=== PATIENT | female | born 1970 | race African-American/Black ===

== ENCOUNTER 2023-05-15 07:21 | Emergency (ER) | payer BC, SELFPAY ==
[2023-05-15 07:40] VITALS: BP 128/75; PULSE 92; RESP 16; TEMP 36.6; O2SAT 100
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
[2023-05-15 08:23] VITALS: BP 122/91; PULSE 82; RESP 16; O2SAT 100
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
[2023-05-15 12:10] VITALS: BP 134/90; PULSE 87; RESP 16; O2SAT 100
== END 2023-05-15 12:10 | disposition home or self-care (01) ==
PROVIDERS: Emergency Provider Emergency Medicine
DX: Z76.0 Encounter for issue of repeat prescription (principal); Z63.0 Problems in relationship with spouse or partner; Z79.899 Other long term (current) drug therapy
CPT/HCPCS: 99283

== ENCOUNTER 2024-04-28 07:45 | Emergency (ER) | payer OTHER, SELFPAY ==
--- NOTE | ~2024-04-28 | CT_ITS ---
CT abdomen pelvis w con Ordering provider: Amado Salvador MD History: 53 years Female with . lower abdominal pain . Comparison: None. Technique: CT abdomen and pelvis with IV and without oral contrast. Automated exposure control and it erative reconstruction technique were employed. The dose-length product was 262.36 mGy-cm. 100 MLO Omnipaque 350 was given IV. Findings: VISUALIZED LOWER CHEST: Dependent atelectatic changes. UPPER ABDOMINAL ORGANS: Liver: Normal. Gallbladder: Possible tiny stone in the gallbladder. Spleen: Normal. Stomach/duodenum: Normal. Pancreas: Normal. Adrenals: Normal. Kidneys: 1.9 cm cyst is seen in the left kidney midpole. PELVIC ORGANS: The bladder is slightly underfilled with thickened wall. Evaluation for cystitis advis ed. Uterus: Normal. BOWEL AND MESENTERY: Colon: No evidence of diverticulitis. Normal appendix. Small Bowel: Normal. No obstruction. Peritoneum/mesentery: No free air or free fluid. No mesenteric lymphadenopathy. RETROPERITONEUM: Mild atheromatous disease of the abdominal aorta. No retroperitoneal lymphadenopat hy. MUSCULOSKELETAL: Superficial soft tissues: The superficial soft tissues are normal. Bones: Age appropriate degenerative changes of the spine. IMPRESSION: 1. No evidence of appendicitis, diverticulitis or intestinal obstruction. 2. Highly suggestive Cholelithiasis. Ultrasound confirmation advised. 3. Small cyst in the left kidney. Reviewed, dictated and finalized at location A.
--- NOTE | ~2024-04-28 | US_ITS ---
COMPLETE ABDOMINAL ULTRASOUND Ordering provider: Amado Salvador MD History: . pain . Comparison: None. FINDINGS: LIVER: Normal size and echotexture. No focal hepatic lesions or perihepatic fluid collections are brendan ntified. Portal vein flow is hepatofugal. GALLBLADDER: Echogenic area with no shadowing is seen in the fundus which may be a polyp. Stone is le ss likely. This area is Measuring 0.3 x 0.3 x 0.4 cm. . Follow-up advised. No evidence for sludge, ga llbladder wall thickening or pericholecystic fluid collections. A negative sonographic Dodd's sign was noted. BILIARY DUCTS: No evidence for intra or extrahepatic biliary dilation. Common bile duct measures 4 mm in diameter which is within normal limits. PANCREAS: Normal echotexture and size. UPPER ABDOMINAL AORTA: Normal in caliber. Measures 1.8 cm. IVC: Patent. FREE FLUID: None. IMPRESSION: 1. Highly suggestive polyp in the fundus of the stomach. Follow-up advised. Otherwise, Unremarkable c omplete ultrasound of the abdomen. Reviewed, dictated and finalized at location A. IMPRESSION: 1. Highly suggestive polyp in the fundus of the stomach. Follow-up advised. Oth erwise, Unremarkable complete ultrasound of the abdomen.
[2024-04-28 07:48] VITALS: BP 121/92; PULSE 102; RESP 22; TEMP 36.4; O2SAT 96
[2024-04-28] MEDS: MORPHINE SULFATE (*CRX) 4 MG/ML INJ IV PUSH ×2 (08:21→09:45)
[2024-04-28] MEDS: ONDANSETRON INJ 4 MG/2 ML VIAL IV PUSH (08:21)
[2024-04-28] MEDS: SODIUM CHLORIDE 0.9% IV 1,000 ML 999 ML IV CONT (08:21)
[2024-04-28 08:26] LABS: Basophils Percent Auto 0.3 % (0.2-1.2); Eosinophils Absolute Auto 0.1 K/mm3 (0-0.3); Eosinophils Percent Auto 2.4 % (0-4.4); Hematocrit 38.4 % (37.0-47.0); Hemoglobin 12.9 g/dL (12.0-15.0); Immature Granulocyte Absolute 0.01 K/mm3 (0.00-0.031); Immature Granulocyte Percent A 0.2 % (0-0.5); Lymphocytes Absolute Auto 3.36 K/mm3 (0.9-3.2); Lymphocytes Percent Auto 56.6 % (18.3-44.2); Mean Corpuscular HGB Conc 33.6 g/dl (32-36); Mean Corpuscular Hemoglobin 31.4 pg (26-34); Mean Corpuscular Volume 93.4 fl (80-100); Mean Platelet Volume 9.7 fl (7.4-10.4); Monocytes Absolute Auto 0.4 K/mm3 (0.1-0.6); Monocytes Percent Auto 7.4 % (2.6-8.5); Neutrophils Percent Auto 33.1 % (45.5-73.1); Platelet Count Result 225 k/mm3 (150-375); Red Blood Count 4.11 M/mm3 (4.2-5.4); Red Cell Distribution Width 11.9 % (11.5-14.5); White Blood Count 5.9 K/mm3 (4.5-10.0)
[2024-04-28 08:36] LABS: Alanine Aminotransferase 19 U/L (6-35); Albumin Level 4.5 g/dL (3.5-5.1); Alkaline Phosphatase 104 U/L (38-126); Anion Gap 11 mmol/L (4-12); Aspartate Amino Transferase 26 U/L (14-36); Bilirubin,Total 0.5 mg/dL (0.2-1.3); Blood Urea Nitrogen 12 mg/dL (7-17); Calcium 9.3 mg/dL (8.4-10.2); Carbon Dioxide 25 mmol/L (22-30); Chloride 103 mmol/L (98-107); Estimated CRCL calculation 75 ml/min; Estimated Glomerular Filt Rate > 60; Glucose 138 mg/dL (65-110); Lipase 128 U/L (23-300); Potassium 3.7 mmol/L (3.4-5.0); Sodium 139 mmol/L (137-145)
[2024-04-28 08:40] LABS: Partial Thromboplastin Time 27.5 Seconds (22.3-36.8)
[2024-04-28 09:18] LABS: Appearance Urine Clear (Clear); Bacteria Urine None Seen /hpf; Bilirubin Urine Negative (Negative); Blood Urine Negative (Negative); Color Urine Yellow (Yellow); Glucose Urine UA Negative (Negative); Ketones Urine Negative (Negative); Leukocyte Esterase Ur 1+ LEU/UL (Negative); Nitrate Urine Negative (Negative); Non Pathogenic Casts 0-2; Protein Urine Negative (Negative); RBC Urine 0-2 /hpf (0-2); Specific Grav Ur 1.037 (1.001-1.035); Squamous Epithelial Cell Urine None Seen /hpf (Few); Urobilinogen Urine 0.2 mg/dL (<2.0); pH Urine 5.5 (5.0-9.0)
[2024-04-28 09:43] LABS: Add Urine Microscopic? YES
--- NOTE | 2024-04-28 09:52 | PC.NURSE ---
Pt refusing US until pain meds given. Pt rocking back & forth. Dr. Salvador informed. Pt medicated with Morphine 4mg. Pt refusing to lay back for US. Informed pt pain med given, in order to complete diagnostics for diagnosis she will need to lay back. Pt reluctantly complied.
[2024-04-28 10:15] VITALS: BP 128/74; PULSE 78; RESP 18; O2SAT 97
--- NOTE | 2024-04-28 11:03 | ED.ABDPAIN ---
HPI - Abdominal Pain General Chief Complaint: Abdominal Pain Stated Complaint: abdominal pain Time Seen by Provider: 04/28/24 07:55 History of Present Illness HPI narrative: patient is a 53-year-old female who presents ER with abdominal pain. Diffuse. Cramping. No fevers or chills or sweats. No vomiting or diarrhea. Patient without urinary frequency. Pain is better with rolling into a ball and worse with lying back. Related Data Home Medications Medication Instructions Recorded Confirmed ergocalciferol (vitamin D2) 1,250 05/15/23 05/15/23 mcg (50,000 unit) capsule hydrocortisone 2.5 % topical cream applic topical 05/15/23 lisinopril 10 mg tablet mg 05/15/23 potassium chloride 20 mEq meq PO 05/15/23 tablet,extended release(part/cryst) sertraline 50 mg tablet mg 05/15/23 Allergies Allergy/AdvReac Type Severity Reaction Status Date / Time No Known Allergies Allergy Verified 04/28/24 11:57 Review of Systems Review of Systems: All systems reviewed & are unremarkable except as noted in HPI and below Constitutional: Constitutional: Reports no additional constitutional complaints ENT: Reports system reviewed and no additional complaints, except as documented Cardiovascular: Cardiovascular: Reports no additional cardiovascular complaints Respiratory: Respiratory: Reports no additional respiratory complaints Gastrointestinal: Gastrointestinal: Reports abdominal pain, Denies diarrhea, Denies nausea and Denies vomiting Genitourinary: Genitourinary: Denies nocturia, Denies dysuria and Reports flank pain PMFSH Past Medical History Medical History (Updated 04/28/24 @ 12:04 by Amado Salvador MD) Hypertension Surgical History Surgical History (Updated 04/28/24 @ 11:06 by Amado Salvador MD) No pertinent past surgical history Exam Narrative: GENERAL: uncomfortable-appearing, well-nourished, and in no acute distress. HEAD: Normocephalic, atraumatic. ENT: Mucous membranes moist. CHEST: Clear to auscultation. No respiratory distress. HEART: Regular rate and rhythm. Normal peripheral pulses. ABDOMEN: Soft, mild diffuse discomfort without localizing tenderness, nondistended. EXTREMITIES: Normal range of motion. No edema. SKIN: Warm, dry, no rash. NEURO: Alert and oriented x3. PSYCH: Normal mood and affect. Course Course Emergency Course: pain improving. Informed results. Discharge home with supportive care. Vital Signs Vital signs: Vital Signs Temperature 97.6 F 04/28/24 07:48 Pulse Rate 102 H 04/28/24 07:48 Respiratory Rate 22 H 04/28/24 07:48 Blood Pressure 121/92 H 04/28/24 07:48 Pulse Oximetry 96 04/28/24 07:48 Oxygen Delivery Room Air 04/28/24 07:48 Temperature 97.6 F 04/28/24 07:48 Pulse Rate 102 H 04/28/24 07:48 Respiratory Rate 22 H 04/28/24 07:48 Blood Pressure 121/92 H 04/28/24 07:48 Pulse Oximetry 96 04/28/24 07:48 Oxygen Delivery Room Air 04/28/24 07:48 MDM - Abdominal Pain Lab Data 04/28/24 08:21 04/28/24 08:21 Labs: Lab Results 04/28/24 04/28/24 Range/Units 08:21 09:05 WBC 5.9 (4.5-10.0) K/mm3 RBC 4.11 L (4.2-5.4) M/mm3 Hgb 12.9 (12.0-15.0) g/dL Hct 38.4 (37.0-47.0) % MCV 93.4 (80-100) fl MCH 31.4 (26-34) pg MCHC 33.6 (32-36) g/dl RDW 11.9 (11.5-14.5) % Plt Count 225 (150-375) k/mm3 MPV 9.7 (7.4-10.4) fl Immature Gran % (Auto) 0.2 (0-0.5) % Neut % (Auto) 33.1 L (45.5-73.1) % Lymph % (Auto) 56.6 H (18.3-44.2) % [place] % (Auto) 7.4 (2.6-8.5) % Eos % (Auto) 2.4 (0-4.4) % Baso % (Auto) 0.3 (0.2-1.2) % Lymph # (Auto) 3.36 H (0.9-3.2) K/mm3 [place] # (Auto) 0.4 (0.1-0.6) K/mm3 Eos # (Auto) 0.1 (0-0.3) K/mm3 Baso # (Auto) 0.0 (0.0-0.1) K/mm3 Abs Immat Gran (auto) 0.01 (0.00-0.031) K/mm3 Absolute Neuts (auto) 2.0 (1.3-6.7) K/mm3 Absolute Nucleated RBC 0.000 (0.0-0.012) K/mm3 Nucleat
[2024-04-28 11:56] VITALS: BP 125/77; PULSE 74; RESP 18; TEMP 36.4; O2SAT 98
[2024-04-28 12:16] VITALS: BP 115/74; PULSE 82; RESP 16; O2SAT 97
== END 2024-04-28 12:18 | disposition home or self-care (01) ==
PROVIDERS: Emergency Provider Emergency Medicine
DX: N39.0 Urinary tract infection, site not specified (principal); K82.4 Cholesterolosis of gallbladder; R14.0 Abdominal distension (gaseous); R10.9 Unspecified abdominal pain; I10 Essential (primary) hypertension; Z79.899 Other long term (current) drug therapy
CPT/HCPCS: 36415; 74177; 76705; 80053; 81001; 81025; 83690; 85025; 85610; 85730; 87086; 96361; 96374; 96375; 96376; 99284; J2270; J2405; J7030; Q9967

== ENCOUNTER 2024-07-16 00:43 | Emergency (ER) | payer OTHER, SELFPAY ==
[2024-07-16] VITALS (29 sets, daily range): BP systolic 102–150; BP diastolic 66–88; PULSE 94–135; RESP 17–30; TEMP 36.6; O2SAT 91–100
--- NOTE | ~2024-07-16 | CT_ITS ---
Clinical Indication: Chest pain, shortness of breath CT Scan of the Chest with Contrast: Technique: Contiguous sections were acquired throughout the chest after intravenous administration of 100 cc of Omnipaque 350. Dose reduction technique was used on this scan by utilizing automated expos ure control and iterative reconstruction technique. The dose-length product (DLP) was 192.40 mGy-cm. Findings: There is no evidence of any significant mediastinal, hilar or axillary lymphadenopathy. There is no f illing defect in the pulmonary arterial tree to suggest pulmonary embolus. There is no evidence of ao rtic dissection or aneurysm. There is no evidence of pleural or pericardial effusion. There is patchy bibasilar airspace disease. Images through the upper abdomen reveal no abnormalities. Impression: No evidence of pulmonary embolus, aortic dissection, or aortic aneurysm. Patchy bibasilar airspace disease could represent atelectasis versus pneumonia. Correlate clinically. Reviewed, dictated and finalized at [facility]. Impression: No evidence of pulmonary embolus, aortic dissection, or aortic aneurysm. Patchy bibasilar airspace disease could represent atelectasis versus pneumonia. Correlate clinically.
--- NOTE | ~2024-07-16 | XR_ITS ---
Portable chest x-ray Comparison: None Clinical History: Chest pain Findings: Minimal left pleural effusion present. There is probable mild bibasilar pulmonary edema/at electasis. Cardiomediastinal silhouette is unremarkable. Bones and soft tissues are unremarkable. Impression: Probable mild bibasilar pulmonary edema/atelectasis. Correlate clinically for infection. Minimal left pleural effusion. Reviewed, dictated and finalized at location . Impression: Probable mild bibasilar pulmonary edema/atelectasis. Correlate clinically for i nfection. Minimal left pleural effusion.
--- NOTE | 2024-07-16 00:46 | ECG_ITS ---
Test Date: 2024-07-16 00:53:31 Measurements Intervals [place] Rate: 132 P: 98 NV: 179 QRS: 203 QRSD: 77 T: 185 QT: 344 QTc: 510 Interpretive Statements SINUS TACHYCARDIA LIMB LEAD REVERSAL NONSPECIFIC ST AND T-WAVE ABNORMALITY ABNORMAL ECG No previous ECG available for comparison Electronically Signed On 07-16-2024 13:52:05 CDT by Bonifacio Mak M.D.
[2024-07-16] MEDS: ASPIRIN 81 MG CHEWABLE TABLET 324 MG PO (01:00)
[2024-07-16 01:08] LABS: Basophils Percent Auto 0.2 % (0.2-1.2); Hematocrit 39.7 % (37.0-47.0); Hemoglobin 13.2 g/dL (12.0-15.0); Immature Granulocyte Absolute 0.02 K/mm3 (0.00-0.031); Immature Granulocyte Percent A 0.2 % (0-0.5); Lymphocytes Absolute Auto 4.35 K/mm3 (0.9-3.2); Lymphocytes Percent Auto 32.8 % (18.3-44.2); Mean Corpuscular HGB Conc 33.2 g/dl (32-36); Mean Corpuscular Hemoglobin 31.5 pg (26-34); Mean Corpuscular Volume 94.7 fl (80-100); Mean Platelet Volume 9.6 fl (7.4-10.4); Monocytes Absolute Auto 1.2 K/mm3 (0.1-0.6); Monocytes Percent Auto 9.2 % (2.6-8.5); Neutrophils Absolute Auto 7.7 K/mm3 (1.3-6.7); Neutrophils Percent Auto 57.6 % (45.5-73.1); Platelet Count Result 224 k/mm3 (150-375); Red Blood Count 4.19 M/mm3 (4.2-5.4); Red Cell Distribution Width 12.6 % (11.5-14.5); White Blood Count 13.3 K/mm3 (4.5-10.0)
[2024-07-16] MEDS: NITROGLYCERIN SL 0.4 MG TABLET SUBLINGUAL (01:10)
[2024-07-16] MEDS: SODIUM CHLORIDE 0.9% IV 1,000 ML 999 ML IV CONT (01:11)
[2024-07-16] MEDS: MORPHINE SULFATE (*CRX) 4 MG/ML INJ IV PUSH ×2 (01:11→06:36)
[2024-07-16 01:17] LABS: INR 1.1; Prothrombin Time 14.3 Seconds (11.1-14.7)
[2024-07-16 01:18] LABS: Partial Thromboplastin Time 25.3 Seconds (22.3-36.8)
[2024-07-16 01:21] LABS: Alanine Aminotransferase 17 U/L (6-35); Albumin Level 4.7 g/dL (3.5-5.1); Alkaline Phosphatase 117 U/L (38-126); Anion Gap 10 mmol/L (4-12); Aspartate Amino Transferase 30 U/L (14-36); Bilirubin,Total 0.9 mg/dL (0.2-1.3); Blood Urea Nitrogen 18 mg/dL (7-17); Calcium 9.6 mg/dL (8.4-10.2); Carbon Dioxide 27 mmol/L (22-30); Chloride 103 mmol/L (98-107); Estimated CRCL calculation 68 ml/min; Estimated Glomerular Filt Rate > 60; Glucose 142 mg/dL (65-110); Lipase 61 U/L (23-300); Potassium 4.2 mmol/L (3.4-5.0); Sodium 140 mmol/L (137-145)
[2024-07-16 01:32] LABS: Troponin I < 0.012 ng/mL (0.000-0.034)
[2024-07-16] MEDS: HYDROmorphone HCL INJ (*CRX) 1 MG/ML SYR IV PUSH (02:26)
--- NOTE | 2024-07-16 04:31 | ECG_ITS ---
Test Date: 2024-07-16 04:34:12 Measurements Intervals [place] Rate: 107 P: 46 TX: 180 QRS: 9 QRSD: 77 T: 33 QT: 347 QTc: 463 Interpretive Statements SINUS TACHYCARDIA POSSIBLE RIGHT VENTRICULAR CONDUCTION DELAY [RSR (QR) IN V1/V2] NONSPECIFIC ST & T-WAVE ABNORMALITY ABNORMAL ECG Compared to ECG 07/16/2024 00:53:31 No significant changes Electronically Signed On 07-16-2024 13:53:22 CDT by Bonifacio Mak M.D.
[2024-07-16 04:59] LABS: NT Pro B Type Natriuretic Pept 71 pg/mL (19.9-100)
--- NOTE | 2024-07-16 05:34 | ED.GENADULT ---
HPI - General Adult General Chief complaint: Chest Pain Stated complaint: sob, cp, feel like something stuck in my throat. Time Seen by Provider: 07/16/24 01:01 History of Present Illness HPI narrative: Patient is a 53-year-old female who presents emergency department with chief complaint of a fullness feeling in her neck. Patient reports that she had a fullness feeling in her neck started around 3:00 a.m. in the afternoon reports that she feels as though she short of breath and has some tightness in her chest. Patient reports no prior history of cardiac disease reports no history of thromboembolic disease does report history of hypertension depression Related Data Home Medications Medication Instructions Recorded Confirmed ergocalciferol (vitamin D2) 1,250 05/15/23 05/21/24 mcg (50,000 unit) capsule Allergies Allergy/AdvReac Type Severity Reaction Status Date / Time No Known Allergies Allergy Verified 07/16/24 00:43 Review of Systems Review of Systems: A 10 system review of systems was completed on the patient and is negative except for what is stated in the HPI. Nursing and ancillary documentation was reviewed. PMFSH Past Medical History Medical History Depression Hypertension Surgical History Surgical History No pertinent past surgical history Social History Social History Smoking status: Former smoker Exam Narrative: GENERAL: Well-appearing, well-nourished, and in no acute distress. HEAD: Normocephalic, atraumatic. EYES: PERRLA and EOMI. ENT: Nares clear, no rhinorrhea or epistaxis. Mucous membranes moist. NECK: Supple. CHEST: Clear to auscultation. No respiratory distress. HEART: Regular rate and rhythm. No murmur heard. Normal peripheral pulses. ABDOMEN: Soft, nontender, nondistended, normal active bowel sounds. EXTREMITIES: Normal range of motion. No edema. SKIN: Warm, dry, no rash. NEURO: No focal deficits. Alert and oriented x3. PSYCH: Normal mood and affect. Course Vital Signs Vital signs: Vital Signs Temperature 36.6 C 07/16/24 00:51 Pulse Rate 135 H 07/16/24 00:51 Respiratory Rate 24 H 07/16/24 00:51 Blood Pressure 150/88 H 07/16/24 00:51 Pulse Oximetry 98 07/16/24 00:51 Oxygen Delivery Room Air 07/16/24 00:51 Temperature 36.6 C 07/16/24 00:51 Pulse Rate 97 07/16/24 05:46 Respiratory Rate 25 H 07/16/24 05:46 Blood Pressure 114/71 07/16/24 05:46 Pulse Oximetry 95 07/16/24 05:46 Oxygen Delivery Room Air 07/16/24 01:04 Medical Decision Making MDM Narrative Medical decision making narrative: Differential diagnosis includes pneumonia, ACS, pneumothorax, pulmonary embolism EKG initial showed sinus tachycardia without ST elevation or ST depression. Laboratory studies were obtained showed a white count of 13.3 electrolytes showed no acute abnormalities troponin was negative at 0 hour and 3 hour BNP was 71 lipase was normal at 61 CTA chest showed No evidence of pulmonary embolus, aortic dissection, or aortic aneurysm. Patchy bibasilar airspace disease could represent atelectasis versus pneumonia. Correlate clinically. Vital Signs Vital Signs: Vital Signs Temperature 36.6 C 07/16/24 00:51 Pulse Rate 135 H 07/16/24 00:51 Respiratory Rate 24 H 07/16/24 00:51 Blood Pressure 150/88 H 07/16/24 00:51 Pulse Oximetry 98 07/16/24 00:51 Oxygen Delivery Room Air 07/16/24 00:51 Temperature 36.6 C 07/16/24 00:51 Pulse Rate 97 07/16/24 05:46 Respiratory Rate 25 H 07/16/24 05:46 Blood Pressure 114/71 07/16/24 05:46 Pulse Oximetry 95 07/16/24 05:46 Oxygen Delivery Room Air 07/16/24 01:04 Lab Data 07/16/24 01:02 07/16/24 01:02 Labs: Lab Results 07/16/24
[2024-07-16 06:40] LABS: Troponin I < 0.012 ng/mL (0.000-0.034)
[2024-07-16] MEDS: KETOROLAC 15 MG/ML VIAL (*BKC) IV PUSH (07:24)
[2024-07-16] MEDS: CEFDINIR 300 MG CAPSULE PO (07:25)
[2024-07-16] MEDS: AZITHROMYCIN 250 MG TABLET 500 MG PO (07:25)
== END 2024-07-16 08:18 | disposition home or self-care (01) ==
PROVIDERS: Emergency Provider Emergency Medicine; PCP Emergency Medicine
DX: J18.9 Pneumonia, unspecified organism (principal); R07.89 Other chest pain; F32.A Depression, unspecified; Z87.891 Personal history of nicotine dependence; Z79.899 Other long term (current) drug therapy; R00.0 Tachycardia, unspecified; R94.31 Abnormal electrocardiogram [ECG] [EKG]
CPT/HCPCS: 36415; 71045; 71275; 80053; 83690; 83880; 84484; 85025; 85610; 85730; 93005; 96361; 96374; 96375; 99284; A9270; J1171; J1885; J2270; J7030; Q9967

== ENCOUNTER 2025-02-12 19:35 | Emergency (ER) | payer SELFPAY ==
--- NOTE | ~2025-02-12 | XR_ITS ---
XR chest 2V Ordering provider: Tim Healy MD History: 54 years Female with . cp, PALPITATIONS AND SHORTNESS OF BREATH X 1 WEEK . Comparison: July 16, 2024 FINDINGS: MEDIASTINUM: The cardiac silhouette is not enlarged. LUNGS: No infiltrates, effusions or pneumothorax. OTHER: No free air under the diaphragm. IMPRESSION: No acute cardiopulmonary pathology. Reviewed, dictated and finalized at location A.
[2025-02-12 19:35] VITALS: BP 123/80; PULSE 117; RESP 30; TEMP 36.9; O2SAT 99
[2025-02-12 19:39] VITALS: PULSE 113
--- NOTE | 2025-02-12 19:40 | ECG_ITS ---
Test Date: 2025-02-12 19:42:19 Measurements Intervals [place] Rate: 108 P: 36 VT: 178 QRS: -7 QRSD: 78 T: 30 QT: 358 QTc: 481 Interpretive Statements SINUS TACHYCARDIA POSSIBLE LEFT ATRIAL ENLARGEMENT [-0.1mV P WAVE IN V1/V2] POSSIBLE RIGHT VENTRICULAR CONDUCTION DELAY [RSR (QR) IN V1/V2] POSSIBLE LEFT VENTRICULAR HYPERTROPHY [VOLTAGE CRITERIA PLUS LAE OR QRS WIDENING] NONSPECIFIC T-WAVE ABNORMALITY Compared to ECG 07/16/2024 04:34:12 No significant changes Electronically Signed On 02-13-2025 19:07:17 CDT by Phani Laboy
[2025-02-12] MEDS: ASPIRIN 81 MG CHEWABLE TABLET 324 MG PO (19:46)
[2025-02-12 19:53] LABS: Basophils Percent Auto 0.4 % (0.2-1.2); Eosinophils Percent Auto 0.4 % (0-4.4); Hematocrit 34.1 % (37.0-47.0); Hemoglobin 11.4 g/dL (12.0-15.0); Immature Granulocyte Absolute 0.01 K/mm3 (0.00-0.031); Immature Granulocyte Percent A 0.1 % (0-0.5); Lymphocytes Absolute Auto 3.35 K/mm3 (0.9-3.2); Lymphocytes Percent Auto 46.1 % (18.3-44.2); Mean Corpuscular HGB Conc 33.4 g/dl (32-36); Mean Corpuscular Hemoglobin 31.4 pg (26-34); Mean Corpuscular Volume 93.9 fl (80-100); Mean Platelet Volume 9.7 fl (7.4-10.4); Monocytes Absolute Auto 0.6 K/mm3 (0.1-0.6); Monocytes Percent Auto 8.4 % (2.6-8.5); Neutrophils Absolute Auto 3.2 K/mm3 (1.3-6.7); Neutrophils Percent Auto 44.6 % (45.5-73.1); Platelet Count Result 146 k/mm3 (150-375); Red Blood Count 3.63 M/mm3 (4.2-5.4); Red Cell Distribution Width 13.6 % (11.5-14.5); White Blood Count 7.3 K/mm3 (4.5-10.0)
--- OUTSIDE RECORDS SUMMARY | 2025-02-12 19:59 | XMS_ITS | Clinical Summary ---
Author Organization [facility] Address [address] [place] [address] Care Team Providers Care Flower Cheniller Name Role Phone Armin CONKLIN MD, Ilia Velazquez Primary Care Provider [phone] Source Comments [facility],non-owned Affiliates and Associated Physician Practices is amultiple site organization consisting of ambulatory clinics and hospital sitesin [place], [place], [place] and [place]. This disclosure is being madepursuant to the Care Everywhere program and may not contain all information available regarding this patient. Last updated 18.[facility] Allergies No known active allergies Medications * Be aware that medications may not be up to date on this document. Alwaysverify current medications with the patient. acetaminophen (Tylenol) 325 MG tablet Take 2 (two) tablets by mouth every 6 hours as needed Maximum allowable Acetaminophen amount = 4 Grams (4000 mg) / 24 hours. Active albuterol HFA (Proventil; Ventolin; Proair) 108 (90 Base) MCG/ACT inhaler Inhale 2 (two) puffs by mouth every 4 hours as needed for Shortness of Breath or Wheezing 10 g 08/29/2024 4:57 PM SENIOR ETL DEVELOPER Active Additional Information Patient not taking.Reported on 09/03/2024 sertraline (Zoloft) 50 MG tabletIndicatio ns:Episode of recurrent major depressive disorder, unspecified depression episode severity Take 1 (one) tablet by mouth once daily 30 tablet 4 Active pantoprazole EC (Protonix) 40 MG tablet Take 1 (one) tablet by mouth 2 times daily for 40 days 40 tablet 1 4 Active lactobacillus extra strength (Florajen) capsule Take 1 (one) capsule by mouth 3 times daily 4 Active colchicine 0.6 MG tablet Take 1 (one) tablet by mouth once daily for 90 days 30 tablet 2 4 Active Active Problems Problem Noted Date Diagnosed Date Empyema lung 09/11/2024 Gastroesophageal reflux disease without esophagi tis 09/11/2024 Pneumonia of left lower lobe due to infectious o rganism 08/26/2024 Bronchitis 07/31/2024 Shortness of breath 07/23/2024 Pleuritic chest pain 07/23/2024 Pneumonia of both lower lobes due to infectious organism 07/23/2024 HTN (hypertension) 07/23/2024 Depression 07/23/2024 Immunizations Immunization Administration Dates Next Due Covid Moderna primary monovalent 12+ yr 0.5mL ,02/05/2021 FLU VACCINE TRI IIV3 SPLIT IM (FLUVIRIN) 016 INFLUENZA VACCINE 10/22/2013 INFLUENZA VACCINE, QUADR. (A FLURIA, FLUZONE QUADRIVALENT; 6MO+) (IIV4) 07/17/2018 INFLUENZA VACCINE, QUADR. (F LUZONE; FLULAVAL; FLUARIX; AFLURIA QUADRIVALENT; 6MO+), 0.5 ML (IIV4) 11/07/2022 INFLUENZA VACCINE, TRIV. (FL UZONE; FLULAVAL; FLUARIX; AFLURIA TRIVALENT; 6MO+), 0.5 ML (IIV3) 08/29/2024 PNEUMOCOCCAL PCV20 CONJ VAC IM 09/03/2024 Family History Medical History Relation Name Comments Heart Failure Father CAD (Coronary Artery Disease) Mother Relation Name Status Comments Father Mother Social History Tobacco Use Types Packs/Day Years Used Date Smoking Tobacco: Never Smokeless Tobacco: Never Tobacco Cessation:Counseling Given: Not Answered Alcohol Use Standard Drinks/Week Comments Not Currently 0 (1 standard drink = 0.6 oz pure alcohol) Quit 6 months; previously heavy drinker with 1 pint/day AUDIT-C Answer Date Recorded Q1: How often do you have a drink containing alc ohol? Monthly or less 09/13/2024 Q2: How many drinks containi ng alcohol do you have on a typical day when you are drinking? 1 or 2 09/13/2024 Q3: How often do you have si x or more drinks on one occasion? Never 09/13/2024 Overall Financial Resource Strain (CARDIA) Answe r Date Recorded How hard is it for you to pa y for the very basics like food, housing, medical care, and heating? Hard 09/12/2024 PHQ-2 Answer Date Recorded Patient Health Questionnaire-2 Score 6 09/03/2024 [facility] - Occupational Stress Questionnaire Answer Date Recorded Do you feel stress - tense, restless, nervous, or anxious, or unable to sleep at night because your mind is troubled all the time - these days? Very much 09/12/2024 Hunger Vital Sign Answer Date Recorded Within the past 12 months, y ou worried that your food would run out before you got the money to buy more. Sometimes true Within the past 12 months, t he food you bought just didn't last and you didn't have money to get more. Sometimes true PRAPARE - Transportation Answer Date Re corded In the past 12 months, has l ack of transportation kept you from medical appointments or from getting medications? No 08/16 In the past 12 months, has l ack of transportation kept you from meetings, work, or from getting things needed for daily living? No 09/12/2024 Housing Stability Vital Sign Answer Dmitriy e Recorded In the last 12 months, was t here a time when you were not able to pay the mortgage or rent on time? Yes 09/12/2024 In the past 12 months, how m any times have you moved where you were living? 1 09/12/2024 At any time in the past [address] [facility], were you homeless or living in a senior care (including now)? No 09/12/2024 Comments No Sex and Gender Information Value Date Recorded Sex Assigned at Not on file Legal Sex Female 9:01 PM CDT Gender Identity Not on file Sexual Orientation Not on file Last Filed Vital Signs Vital Sign Reading Time Taken Comments Blood Pressure 115/84 09/15/2024 9:12 AM SENIOR ETL DEVELOPER Pulse 78 09/15/2024 9:12 AM SENIOR ETL DEVELOPER Temperature 37.1 C (98.7 F) 09/15/2024 9:12 AM SENIOR ETL DEVELOPER Respiratory Rate 20 09/15/2024 9:12 AM SENIOR ETL DEVELOPER Oxygen Saturation 99% 09/15/2024 9:12 AM SENIOR ETL DEVELOPER Inhaled Oxygen Concentration 21% 11:45 AM SENIOR ETL DEVELOPER Weight 62.1 kg (136 lb 12.8 oz) 09/11/2024 4:08 PM SENIOR ETL DEVELOPER Height 157.5 cm (5' 2 ) 09/10/2024 7:06 PM SENIOR ETL DEVELOPER Body Mass Index 25.02 09/10/2024 7:06 PM SENIOR ETL DEVELOPER Plan of Treatment Health Maintenance Due Date Last Done Comments COLOGUARD (AGES 45-75) - COLON CA SCREENING 1972 COLON MONITORING 1972 COLONOSCOPY - COLON CA SCREENING 1972 CT COLONOGRAPHY - COLON CA SCREENING 1972 Colorectal Cancer Screening 1972 FIT - COLON CA SCREENING 1972 FLEX SIG - COLON CA SCREENING 1972 LIPID TESTING 1972 MAMMOGRAM 1972 PAP SMEAR 1972 HEPATITIS C SCREENING 09/23/1990 DTAP/TDAP/TD VACCINES (1 - Tdap) 1991 HEPATITIS B VACCINE (1 of 3 - 19+ 3-dose series) 1991 ZOSTER VACCINE (1 of 2) 2022 COVID-19 VACCINE (3 - 2023- season) 2024 03/25/2021, 02/05/2021 DEPRESSION SCREENING 10/15/2024 09/03/2024 SCREENING FOR DIABETES 09/15/2027 , 09/14/2024, 09/13/2024, Additional history exists HIV SCREENING Completed 08/29/2024, 07/23/2024 INFLUENZA VACCINE Completed 08/29/2024, , 07/17/2018, Additional history exists PNEUMOCOCCAL VACCINE 50+ Completed 09/03/2024 HIB VACCINE Aged Out No longer eligi ble based on patient's age to complete this topic HPV VACCINE Aged Out No longer eligi ble based on patient's age to complete this topic MENINGOCOCCAL (Group B) VACCINE SHARED DECISION-MAKING Aged Out No longer eligible based on patient's age to complete this topic MENINGOCOCCAL GROUPS A/C/Y/W VACCINE Aged Out No longer eligible based on patient's age to complete this topic Procedures Procedure Name Priority Date/Time Associated Diagnosis Comments RENAL FUNCTION PANEL AM Draw 09/15/2024 3:48 AM SENIOR ETL DEVELOPER HIV-1 HIV-2 ANTIBODY + HIV P24 AG PANEL AM Draw 08/29/2024 2:20 AM SENIOR ETL DEVELOPER from Last 3 Months or Most Recently Relevant to Health Maintenance Results * (ABNORMAL) RENAL FUNCTION PANEL (09/15/2024 3:48 AM SENIOR ETL DEVELOPER) BUN 5(L) 7 - 26 mg/dL 09/15/2024 5:00 AM [facility] Creatinine 0.71 0.56 - 0.96 mg/dL 09/15/2024 5:00 AM [facility] Sodium 143 136 - 145 mmol/L 09/15/2024 5:00 AM [facility] Potassium 3.8 3.5 - 4.5 mmol/L 09/15/2024 5:00 AM [facility] Chloride 110(H) 98 - 107 mmol/L 09/15/2024 5:00 AM [facility] CO2 24 22 - 29 mmol/L 09/15/2024 5:00 AM [facility] Glucose 115(H) 70 - 99 mg/dL 09/15/2024 5:00 AM [facility] Albumin 2.7(L) 3.4 - 5.0 g/dL 09/15/2024 5:00 AM [facility] Calcium 8.7 8.4 - 10.2 mg/dL 09/15/2024 5:00 AM [facility] Phosphorus 4.2 2.9 - 5.1 mg/dL 09/15/2024 5:00 AM [facility] Anion Gap 9 6 - 16 09/15/2024 5:00 AM [facility] BUN/Creatinine Ratio 7 7 - 23 09/15/2024 5:00 AM [facility] Osmolality Calculated 294 275 - 295 mOsm/kg 09/15/2024 5:00 AM [facility] eGFR by CKD-EPI >90 >=90 mL/min/1.7 3 m2 09/15/2024 5:00 AM SENIOR ETL DEVELOPER [facility] Blood BLOOD SPECIMEN / Unknown Lab Venipuncture / Unknown 09/15/2024 3:48 AM SENIOR ETL DEVELOPER 09/15/2024 4:43 AM SENIOR ETL DEVELOPER us Ilia Funez III, MD LAB - CHEMISTRY ORDERABLE S Final Result Performing Organization Address City/[facility]/ZIP Co de Phone Number [place] [address] [place] [address], [facility] [phone] * HIV-1 HIV-2 ANTIBODY + HIV P24 AG PANEL (08/29/2024 2:20 AM SENIOR ETL DEVELOPER) HIV Antigen/Antibod y 1 & 2 Non-reacti ve Non-react luis 08/29/2024 3:32 AM SENIOR ETL DEVELOPER [facility] Comment:No Laboratory eviden ce of HIV infection. Blood BLOOD SPECIMEN / Unknown Lab Venipuncture / Unknown 08/29/2024 2:20 AM SENIOR ETL DEVELOPER 08/29/2024 2:37 AM SENIOR ETL DEVELOPER us Mateo Perera MD LAB - CHEMISTRY ORDERABLES Final Result Performing Organization Address [facility]/ZIP Co de Phone Number [address] [address], [place] [phone] from Last 3 Months or Most Recently Relevant to Health Maintenance Advance Directives * Full Code (Latest Code Status on File) Date Activated Date Inactivated Comments 09/11/2024 5:30 AM 09/15/2024 1:30 PM * Full Code Date Activated Date Inactivated Comments 08/26/2024 11:53 PM 08/29/2024 8:26 PM * Full Code Date Activated Date Inactivated Comments 07/23/2024 9:23 AM 07/25/2024 6:14 PM Care Teams Flower Cheniller Relationship Specialty Start Date End Date Ilia Funez III, MD [address] [place] [phone] PCP - General Internal Medicine 10/29/24
[2025-02-12 20:03] LABS: Alanine Aminotransferase 30 U/L (6-35); Albumin Level 4.7 g/dL (3.5-5.1); Alkaline Phosphatase 92 U/L (38-126); Anion Gap 17 mmol/L (4-12); Aspartate Amino Transferase 38 U/L (14-36); Bilirubin,Total 0.7 mg/dL (0.2-1.3); Blood Urea Nitrogen 10 mg/dL (7-17); Calcium 9.2 mg/dL (8.4-10.2); Carbon Dioxide 17 mmol/L (22-30); Chloride 104 mmol/L (98-107); Estimated CRCL calculation 88 ml/min; Estimated Glomerular Filt Rate > 60; Glucose 97 mg/dL (65-110); Lipase 160 U/L (23-300); Potassium 3.9 mmol/L (3.4-5.0); Sodium 138 mmol/L (137-145)
[2025-02-12 20:04] LABS: INR 1.1
[2025-02-12 20:05] LABS: Partial Thromboplastin Time 25.2 Seconds (22.3-36.8)
[2025-02-12 20:12] LABS: Magnesium 1.1 mg/dL (1.6-2.3)
[2025-02-12 20:15] LABS: Troponin I < 0.012 ng/mL (0.000-0.034)
--- NOTE | 2025-02-12 20:21 | ED_ITS ---
HPI - Arrhythmia/Palpitations General Chief Complaint: Arrhythmia/Palpitations Stated Complaint: heart palpitations x 1 week Time Seen by Provider: 02/12/25 19:44 History of Present Illness HPI narrative: Patient is a 55-year-old female who presents to the emergency department this evening complaining of palpitations on and off for the past week. Patient states that she does have inappropriate sinus tachycardia and states that she was placed on propranolol by her clinic coordinator because her resting heart rate was elevated. Patient admits that she has not been compliant with her provide all and has not taken it in the past year, states that she did not feel as though she needed. She admits that throughout the past year she has had issues with palpitations and tachycardia but they have not persisted so she did not seek medical attention. Patient states that this has been going on and off for the past week so she fell any decided to come in for further evaluation. She denies any additional symptoms including any chest pain or shortness of breath, denies any nausea vomiting or abdominal pain, any recent illness, fevers or chills. There are no additional modifying, alleviating, or precipitating factors at this time. Related Data Home Medications ?Medication ?Instructions ?Recorded ?Confirmed ?Last Taken ?Type magnesium chloride 64 mg 64 mg PO DAILY 02/12/25 02/12/25 Unknown History (magnesium chloride) tablet,delayed release (Mag 64) Allergies Allergy/AdvReac Type Severity Reaction Status Date / Time No Known Allergies Allergy Verified 02/12/25 19:40 Review of Systems 2 Review of Systems: All systems are reviewed and are negative unless stated otherwise in the HPI. [facility] Past Medical History Medical History Depression Hypertension Surgical History Surgical History No pertinent past surgical history Social History Social History Smoking status: Former smoker Exam 2 Narrative: General: Alert, awake, afebrile, in no acute distress. HEENT: PERRL, no rhinorrhea, no post nasal drip, oropharynx clear. Neck: Trachea midline, no JVD, no lymphadenopathy. Cardiovascular: Tachycardic with a regular rhythm, no murmurs, rubs or gallops, no peripheral edema. Respiratory: Clear to auscultation bilaterally, no tachypnea, no wheezing, no rhonchi, no rubs, no respiratory distress. Abdomen: Soft, nontender, nondistended, no rebound, no guarding, no peritoneal signs. Musculoskeletal: No joint swelling or deformity, normal muscle tone. Skin: No rashes or petechia, no signs of infection. Psychiatric: Alert and oriented, normal behavior and judgment for situation. Neurological: Alert and oriented to person, place, and time. Follows all commands. No focal deficits, speech is clear and fluent. Course Vital Signs Vital signs: Vital Signs Temperature 98.5 F 02/12/25 19:35 Pulse Rate 117 H 02/12/25 19:35 Respiratory Rate 30 H 02/12/25 19:35 Blood Pressure 123/80 02/12/25 19:35 Pulse Oximetry 99 02/12/25 19:35 Oxygen Delivery Room Air 02/12/25 19:35 Temperature 98.5 F 02/12/25 19:35 Pulse Rate 113 H 02/12/25 19:39 Respiratory Rate 30 H 02/12/25 19:35 Blood Pressure 123/80 02/12/25 19:35 Pulse Oximetry 99 02/12/25 19:35 Oxygen Delivery Room Air 02/12/25 19:35 MDM - Arrhythmia/Palpitations MDM Narrative Medical decision making narrative: The patient was evaluated by myself in the emergency department. History is obtained from patient who is an independent historian and physical exam was performed. External medical records were reviewed at this time. IV was established and pertinent tests were ordered. Patient was administered 1 L IV fluid bolus with normal saline. EKG was obtained which revealed sinus tachycardia rate of 108 beats per minute, no evidence of arrhythmia or evidence of acute ischemia. EKG was independently interpreted by me and is currently pending official cardiology read. Laboratory results obtained revealing hypomagnesemia with magnesium of 1.1 otherwise unremarkable. Patient was administered 2 g of IV magnesium at this time. Imaging studies obtained included CXR which was independently interpreted by me revealing no acute cardiopulmonary process, which is pending final radiology interpretation. Differential diagnosis considerations include arrhythmia, electrolyte derangements, dehydration, infectious process such as pneumonia. Comorbidities impacting this visit include history of inappropriate sinus tachycardia and medical noncompliance. I have evaluated and discussed social determinants of health with the patient that could potentially impact subsequent diagnosis and treatment plans. On repeat assessment of the patient, reevaluation revealed that the patient is doing well and is in no acute distress. Patient symptoms have improved since she arrived to our emergency department. Repeat vital signs were all reviewed and noted to be stable. Differential diagnosis and treatment plan were discussed with the patient at bedside. Patient agrees with discussion and after shared medical decision making agrees with discharge. All questions were answered to the patient's satisfaction. Patient will follow up with her PCP/clinic coordinator in 3-5 days. Patient states that the propranolol dose she was taking was 10 mg twice a day and at this time her medication was refilled for 2 weeks, patient was informed that after that she will need to follow-up with her primary care physician to continue having this medication refilled. Patient was provided with strict return precautions and instructed to return to the emergency department if any new or worsening symptoms develop. The patient was discharged in stable condition. Lab Data 02/12/25 19:48 02/12/25 19:48 Labs: Lab Results 02/12/25 Range/Units 19:48 WBC 7.3 (4.5-10.0) K/mm3 RBC 3.63 L (4.2-5.4) M/mm3 Hgb 11.4 L (12.0-15.0) g/dL Hct 34.1 L (37.0-47.0) % MCV 93.9 (80-100) fl MCH 31.4 (26-34) pg MCHC 33.4 (32-36) g/dl RDW 13.6 (11.5-14.5) % Plt Count 146 L (150-375) k/mm3 MPV 9.7 (7.4-10.4) fl Immature Gran % (Auto) 0.1 (0-0.5) % Neut % (Auto) 44.6 L (45.5-73.1) % Lymph % (Auto) 46.1 H (18.3-44.2) % [place] % (Auto) 8.4 (2.6-8.5) % Eos % (Auto) 0.4 (0-4.4) % Baso % (Auto) 0.4 (0.2-1.2) % Lymph # (Auto) 3.35 H (0.9-3.2) K/mm3 [place] # (Auto) 0.6 (0.1-0.6) K/mm3 Eos # (Auto) 0.0 (0-0.3) K/mm3 Baso # (Auto) 0.0 (0.0-0.1) K/mm3 Abs Immat Gran (auto) 0.01 (0.00-0.031) K/mm3 Absolute Neuts (auto) 3.2 (1.3-6.7) K/mm3 Absolute Nucleated RBC 0.000 (0.0-0.012) K/mm3 Nucleated RBC % 0.0 (0.0-0.2) % PT 14.0 (11.1-14.7) Seconds INR 1.1 APTT 25.2 (22.3-36.8) Seconds Sodium 138 (137-145) mmol/L Potassium 3.9 (3.4-5.0) mmol/L Chloride 104 (98-107) mmol/L Carbon Dioxide 17 L (22-30) mmol/L Anion Gap 17 H (4-12) mmol/L BUN 10 D (7-17) mg/dL Creatinine 0.49 L (0.7-1.0) mg/dL Estim Creat Clear Calc 88 ml/min Estimated GFR > 60 (59 - ) Glucose 97 (65-110) mg/dL Calcium 9.2 (8.4-10.2) mg/dL Magnesium 1.1 L (1.6-2.3) mg/dL Total Bilirubin 0.7 (0.2-1.3) mg/dL AST 38 H (14-36) U/L ALT 30 (6-35) U/L Alkaline Phosphatase 92 (38-126) U/L Troponin I < 0.012 (0.000-0.034) ng/mL Total Protein 8.0 (6.3-8.2) g/dL Albumin 4.7 (3.5-5.1) g/dL Lipase 160 (23-300) U/L Discharge Plan Discharge Clinical Impression: Palpitations, Hypomagnesemia Patient Disposition: Home Condition: Improved Instructions: Antibiotic Form, Heart Palpitations (DC), Hypomagnesemia (ED) Additional Instructions: Please follow-up with your primary care physician/clinic coordinator within the next 3-5 days. Return to the emergency department if any new or worsening symptoms develop. Your propranolol script was refilled for 2 weeks, you were instructed to take your medication as prescribed presents with help with your, after the 2 weeks he will need to see your primary care physician to continue to have your medication refilled. Patient Language: Turkmen Prescriptions: New propranolol 10 mg tablet 10 mg PO Q12H Qty: 30 0RF No Action prednisone 50 mg tablet 50 mg PO DAILY Qty: 5 0RF tramadol 50 mg tablet 50 mg PO Q6H PRN (Reason: pain) Qty: 20 0RF sertraline 50 mg tablet 50 mg PO DAILY Qty: 90 1RF lisinopril 20 mg tablet 20 mg PO DAILY Qty: 90 1RF magnesium chloride [Mag 64] 64 mg tablet,delayed release (DR/EC) 64 mg PO DAILY potassium chloride 20 mEq tablet extended release 20 meq PO DAILY Qty: 30 0RF cefdinir 300 mg capsule 300 mg PO Q12H 10 Days Qty: 20 0RF fluticasone propion-salmeterol [Wixela Inhub] 100-50 mcg/dose blister with device 1 inh inhalation Q12H Qty: 60 0RF Follow-up/Referrals: Alejandro,Yovani Chávez MD [Primary Care Provider] - 3 Days Time of Disposition: 20:32
[2025-02-12] MEDS: MAGNESIUM SULF 2 GM/WATER 50ML 2 GM/50 ML BAG IVPB (20:27)
[2025-02-12] MEDS: SODIUM CHLORIDE 0.9% IV 1,000 ML 999 ML IV CONT (20:31)
[2025-02-12 22:14] VITALS: BP 115/99; PULSE 102; RESP 14; O2SAT 99
== END 2025-02-12 22:33 | disposition home or self-care (01) ==
PROVIDERS: Emergency Provider Emergency Medicine; PCP Emergency Medicine
DX: R00.2 Palpitations (principal); E83.42 Hypomagnesemia; I10 Essential (primary) hypertension; F32.A Depression, unspecified; Z87.891 Personal history of nicotine dependence; Z79.899 Other long term (current) drug therapy; R94.31 Abnormal electrocardiogram [ECG] [EKG]; R00.0 Tachycardia, unspecified
CPT/HCPCS: 36415; 71046; 80053; 83690; 83735; 84484; 85025; 85610; 85730; 93005; 96365; 96366; 99284; A9270; J3475; J7030